=== PATIENT | female | born 1980 | race Caucasian/White ===

== ENCOUNTER 2017-01-25 12:24 | Observation (INO) | payer BC, MEDICAID ==
[2017-01-25] VITALS (25 sets, daily range): BP systolic 102–128; BP diastolic 57–84; PULSE 72–112; RESP 13–20; Ht 154.9 cm; Wt 72.0 kg
[~2017-01-25] VITALS: Ht 154.9 cm; Wt 72.0 kg
[~2017-01-25 12:24] MED LIST: CEFAZOLIN 2 GM/50 ML (PMX) 50 ML IVPB SCH; SOD CHLORIDE 0.9% 1,000 ML IV SCH
[2017-01-25] MEDS ORDERED: BUPIVACAINE 0.25% (MPF) 30 ML INJ ONE (13:40)
[2017-01-25] MEDS ORDERED: SUCCINYLCHOLINE CHLORIDE 100 MG/5 ML SYG IV ONE (13:55)
[2017-01-25] MEDS ORDERED: GLYCOPYRROLATE 0.4 MG INJ ONE ×2 (13:55→14:26)
[2017-01-25] MEDS ORDERED: PROPOFOL 20 ML ONE (13:55)
[2017-01-25] MEDS ORDERED: ROCURONIUM 50 MG INJ ONE (13:55)
[2017-01-25] MEDS ORDERED: LIDOCAINE 2% (SDV) 5 ML INJ ONE (13:55)
[2017-01-25] MEDS ORDERED: MEPERIDINE 100 MG INJ ONE (13:56)
[2017-01-25] MEDS ORDERED: NEOSTIGMINE 3 MG/3 ML SYRINGE ONE ×2 (13:56→14:25)
[2017-01-25] MEDS ORDERED: ONDANSETRON 4 MG INJ ONE (14:25)
[2017-01-25] MEDS ORDERED: CEFAZOLIN 1 GM INJ ONE (14:25)
[2017-01-25] MEDS ORDERED: METOCLOPRAMIDE 10 MG INJ ONE (14:25)
[2017-01-25] MEDS ORDERED: ONDANSETRON 4 MG INJ IV PRN ×2 (15:00→16:30)
[2017-01-25] MEDS ORDERED: MEPERIDINE 25 MG INJ IV PRN (15:00)
[2017-01-25] MEDS ORDERED: morphine (1 MG/ML) 10ML SYRINGE IV PRN ×2 (15:00)
[2017-01-25] MEDS ORDERED: EPHEDrine SULFATE 50 MG/5 ML SYG IV PRN (15:00)
[2017-01-25] MEDS ORDERED: DIPHENHYDRAMINE 50 MG INJ IV PRN (15:00)
[2017-01-25] MEDS ORDERED: hydrALAzine 20 MG INJ IV PRN (15:00)
[2017-01-25] MEDS ORDERED: FENTAnyl 50 MCG/ML VIAL IV PRN (15:00)
[2017-01-25] MEDS ORDERED: METOCLOPRAMIDE 10 MG INJ IV PRN (15:00)
[2017-01-25] MEDS ORDERED: LABETALOL HCL 20MG INJ IV PRN (15:00)
[2017-01-25] MEDS ORDERED: HYDROmorphONE (0.2 MG/ML) 10ML SYG IV PRN (15:00)
[2017-01-25] MEDS ORDERED: MIDAZOLAM 1 MG/ML 2 ML INJ IV PRN (15:00)
[2017-01-25] MEDS: LACTATED RINGER'S 1,000 ML IV SCH (15:31)
[2017-01-25] MEDS ORDERED: HYDROCODONE/APAP (5/325) TAB PO PRN (16:00)
[2017-01-25] MEDS ORDERED: CEFAZOLIN 2 GM/50 ML (PMX) 50 ML IVPB SCH (16:00)
[2017-01-25] MEDS: FENTAnyl 50 MCG/ML VIAL IV PRN ×2 (16:16→16:35)
[2017-01-25] MEDS: HYDROmorphONE (0.2 MG/ML) 10ML SYG IV PRN ×2 (16:16→16:34)
[2017-01-25 16:25] LABS: ADD SCAN DIFF NO
[2017-01-25 16:28] LABS: BASOPHILS % 0.2 % (0.0-2.0); EOSINOPHILS # 0.1 10^3/ul (0.0-0.5); EOSINOPHILS % 0.5 % (0.0-7.0); HEMATOCRIT 39.2 % (37.0-47.0); HEMOGLOBIN 13.6 g/dl (12.0-16.0); LYMPHOCYTES # 3.4 10^3/ul (0.8-2.9); MEAN CORPUSCULAR HEMOGLOBIN 29.8 pg (29.0-33.0); MEAN CORPUSCULAR HGB CONC 34.7 g/dl (32.0-37.0); MEAN PLATELET VOLUME 10.6 fl (7.4-10.4); MONOCYTE # 0.5 10^3/ul (0.3-0.9); MONOCYTES % 3.7 % (0.0-11.0); NEUTROPHIL # 9.1 10^3/ul (1.6-7.5); NEUTROPHILS % 69.1 % (39.0-77.0); PLATELET COUNT 301 10^3/UL (140-415); RED BLOOD COUNT 4.56 10^6/ul (4.20-5.40); RED CELL DISTRIBUTION WIDTH 12.7 % (11.5-14.5); WHITE BLOOD COUNT 13.2 10^3/ul (4.8-10.8)
[2017-01-25 16:44] LABS: ALBUMIN 3.9 g/dl (3.3-4.9)
[2017-01-25 16:47] LABS: ALBUMIN/GLOBULIN RATIO 1.21; BILIRUBIN,INDIRECT 0.2 mg/dl (0-1.1); BILIRUBIN,TOTAL 0.2 mg/dl (0.2-1.3); TOTAL PROTEIN 7.1 g/dl (6.1-8.1)
[2017-01-25 16:54] LABS: CREATININE 0.72 mg/dl (0.44-1.00); POTASSIUM 3.5 mmol/L (3.5-5.1)
[2017-01-25] MEDS: morphine 2 MG INJ IV PRN (18:08)
--- NOTE | 2017-01-25 19:14 | HP ---
DATE OF ADMISSION: 01/25/2017 HISTORY OF PRESENT ILLNESS: The patient is a 36-year-old female who denies any past medical history . The patient presented with a thyroid goiter with subsequent pressure and breathing problems. The patient was evaluated by Dr. Davis in general surgery consultation, was brought to the hospital, and underwent a total thyroidectomy by Dr. Davis. Postoperatively, the patient experienced significant pa in, and patient was admitted for further evaluation and management to medical/surgical floor. PAST MEDICAL HISTORY: Positive for thyroid goiter. PAST SURGICAL HISTORY: The patient denies having any surgeries in the past. FAMILY HISTORY: Noncontributory. SOCIAL HISTORY: The patient lives at home with her family. The patient denies any tobacco use, den ies any alcohol use, denies any illicit drug use. ALLERGIES: NO KNOWN ALLERGIES. HOME MEDICATIONS: None. REVIEW OF SYSTEMS: A 12-point review of systems is negative unless what mentioned in the HPI. PHYSICAL ASSESSMENT: GENERAL: Well-developed, obese female. Currently is awake, alert. VITAL SIGNS: Temperature 98.5, pulse is 72, blood pressure is 128/84, respiratory rate 20, oxygen s aturation 100% on room air. HEENT: Head is atraumatic, normocephalic. Pupils equal, round, reactive to light and accommodation . Oral mucosa is pink and moist. NECK: Supple. The patient has a surgical incision with a dry, clean, and intact dressing. CHEST: Lungs clear bilaterally. There are no rhonchi, wheezes, or rales noted. CARDIOVASCULAR: Normal S1, S2. No murmurs, gallops, clicks, rubs noted. ABDOMEN: Round, soft, nondistended, nontender. Bowel sounds present. There is no guarding or rebo und tenderness. EXTREMITIES: There is no edema, clubbing, cyanosis. Pulses equal bilaterally 2+. SKIN: There is no rash, petechiae noted. NEUROLOGIC: The patient is awake, alert, and oriented x3. No focal deficits noted. Motor strength 5/5 in all extremities. LABORATORY DATA: On admission, CBC: White blood cells 11.8, hemoglobin is 13.7, hematocrit 40.9, p latelets 300. BMP: Sodium is 139, potassium 3.8, chloride 105, carbon dioxide 23, calcium 9.3, glu cose 104, BUN is 10, creatinine 0.75. PT is 27, INR is 1, PT is 10.2. ASSESSMENT: 1. Thyroid goiter status post total thyroidectomy. 2. Obesity. PLAN: Continue on postoperative antibiotics. Continue morphine and [place] p.r.n. for pain. Zofran p.r.n. for nausea. Will start patient on clear liquid diet, advance as patient tolerates. Continue to monitor calcium and electrolytes. Continue sequential compression device for deep venous thromb osis prophylaxis. Further recommendations based on clinical course. Plan of care discussed with Dr Umer Huerta. Dictated By: NAE GUSTAFSON [employer] for VERNA HUERTA MD SR/NTS Conf#: [id number] DID#: [id number]
[2017-01-25] MEDS: CEFAZOLIN 2 GM/50 ML (PMX) 50 ML IVPB SCH (21:56)
[2017-01-26 00:15] VITALS: BP 108/61; PULSE 95; RESP 16
[2017-01-26] MEDS: LACTATED RINGER'S 1,000 ML IV SCH ×2 (02:33→11:02)
[2017-01-26] MEDS: morphine 2 MG INJ IV PRN ×2 (03:35→08:04)
[2017-01-26 03:45] VITALS: BP 103/59; PULSE 111; RESP 16
[2017-01-26 05:34] LABS: ADD SCAN DIFF NO
[2017-01-26 05:48] LABS: BASOPHIL # 0.1 10^3/ul (0.0-0.1); BASOPHILS % 0.3 % (0.0-2.0); EOSINOPHILS % 0.1 % (0.0-7.0); HEMATOCRIT 37.8 % (37.0-47.0); HEMOGLOBIN 12.9 g/dl (12.0-16.0); LYMPHOCYTES # 2.7 10^3/ul (0.8-2.9); LYMPHOCYTES % 17.4 % (15.0-51.0); MEAN CORPUSCULAR HEMOGLOBIN 29.4 pg (29.0-33.0); MEAN CORPUSCULAR HGB CONC 34.1 g/dl (32.0-37.0); MEAN CORPUSCULAR VOLUME 86.1 fl (82.0-101.0); MONOCYTE # 0.8 10^3/ul (0.3-0.9); MONOCYTES % 5.3 % (0.0-11.0); NEUTROPHILS % 76.6 % (39.0-77.0); PLATELET COUNT 295 10^3/UL (140-415); RED BLOOD COUNT 4.39 10^6/ul (4.20-5.40); RED CELL DISTRIBUTION WIDTH 12.8 % (11.5-14.5); WHITE BLOOD COUNT 15.7 10^3/ul (4.8-10.8)
[2017-01-26] MEDS: CEFAZOLIN 2 GM/50 ML (PMX) 50 ML IVPB SCH ×2 (06:03→13:59)
[2017-01-26 06:27] LABS: ALBUMIN 3.7 g/dl (3.3-4.9); POTASSIUM 3.8 mmol/L (3.5-5.1)
[2017-01-26 06:29] LABS: BILIRUBIN,INDIRECT 0.4 mg/dl (0-1.1); BILIRUBIN,TOTAL 0.4 mg/dl (0.2-1.3); CREATININE 0.71 mg/dl (0.44-1.00)
[2017-01-26 06:30] LABS: ALBUMIN/GLOBULIN RATIO 1.23; CALCIUM 7.9 mg/dl (8.4-10.2); TOTAL PROTEIN 6.7 g/dl (6.1-8.1)
--- NOTE | 2017-01-26 06:38 | OPR ---
DATE OF OPERATION: 01/25/2017 INDICATION: This is a 36-year-old female with multinodular goiter with symptoms of pressure and dif ficulties breathing and swallowing. She requests surgical excision. Risks, alternatives, benefits, and personnel were discussed with the patient. Patient expressed understanding and consents to the operation. PREOPERATIVE DIAGNOSIS: Multinodular goiter. POSTOPERATIVE DIAGNOSIS: Multinodular goiter. OPERATION: Right thyroid lobectomy and isthmusectomy. SURGEON: Sarahi Davis MD SPECIMEN: Right thyroid and isthmus. COMPLICATIONS: None. ANESTHESIA: General. PROCEDURE: The patient was taken to the OR and prepped and draped in usual sterile fashion. Surgic al timeout was performed. IV antibiotics were given. Collar incision is made with a 15 blade. Dis section cautery was carried down through the platysma. Superior and inferior skin flaps were create d. Strap muscles were divided in the midline. Attention was then paid to the right thyroid. There appeared to be a lot of inflammation and adhesions to the anterior thyroid. This was dissected out very carefully. The superior and right inferior pole was mobilized. The isthmus was mobilized thr ough posterior dissection. Palpation of the left side was made. There were no apparent nodules. D ecision was made after reviewing the ultrasound imaging to proceed with solely a right-sided thyroid lobectomy isthmusectomy. The thyroid lobe was medialized and the middle thyroidal vein was ligated . There is a significant amount of inflammation and adhesions to the thyroid. The thyroid capsule was slowly dissected off from the adhesions and considerable time was used to do the dissection. Th e right thyroid, superior and inferior pole was mobilized, the isthmus was mobilized and the isthmus was divided from the left thyroid pole with the handheld LigaSure. The surgical markings were sing le short thread right superior, single long thread inferior and double long is isthmus. The specime n was sent. The surgical site was hemostatic. Irrigation of the surgical site was performed with 4 0 cm of Valsalva maneuver. There was no appearance of any bleeding. Strap muscles were reapproxima santana with interrupted 3-0 Vicryl. Platysma muscle was reapproximated with interrupted 3-0 Vicryl. S kin was closed using running 4-0 Monocryl. Local anesthesia was injected. Dry dressings were appli ed. Dictated By: SARAHI SIMPSON/ASHLEIGH Conf#: [id number] DID#: [id number]
[2017-01-26 08:42] VITALS: BP 94/61; RESP 16
--- NOTE | 2017-01-26 14:25 | PN ---
Date/Time of Note Date/Time of Note DATE: 01/26/17 TIME: 14:24 Assessment/Plan VTE Prophylaxis VTE Prophylaxis Intervention: SCD's Lines/Catheters IV [facility]from [facility] Peripheral IV Urinary Cath still in place: No Assessment/Plan Chief Complaint/Hosp Course s/p right thyroid lobectomy and isthmusthectomy Problems: Assessment/Plan doing well voice normal dc home f/u 2 weeks Subjective 24 Hr Interval Summary Free Text/Dictation doing well, no issues, voice normal breathing normal Exam/Review of Systems Vital Signs Vitals Vital Signs Date Time Temp Pulse Resp B/P Pulse Ox O2 Delivery O2 Flow Rate FiO2 01/26/17 08:42 98.5 98 16 94/61 93 01/26/17 03:45 Room Air 01/26/17 00:15 2.0 Intake and Output 01/25/17 01/25/17 01/26/17 15:00 23:00 07:00 Intake Total 850 ml 800 ml Output Total 10 ml 800 ml Balance 840 ml 0 ml Exam c/d/i Results Result Diagram: 01/26/17 0430 01/26/17 0430 Results 24 hrs Laboratory Tests Test 01/25/17 16:20 01/26/17 04:30 White Blood Count 13.2 H 15.7 H Red Blood Count 4.56 4.39 Hemoglobin 13.6 12.9 Hematocrit 39.2 37.8 Mean Corpuscular Volume 86.0 86.1 Mean Corpuscular Hemoglobin 29.8 29.4 Mean Corpuscular Hemoglobin Concent 34.7 34.1 Red Cell Distribution Width 12.7 12.8 Platelet Count 301 295 Mean Platelet Volume 10.6 H 11.0 H Neutrophils % 69.1 76.6 Lymphocytes % 26.0 17.4 Monocytes % 3.7 5.3 Eosinophils % 0.5 0.1 Basophils % 0.2 0.3 Nucleated Red Blood Cells % 0.0 0.0 Neutrophils # 9.1 H 12.0 H Lymphocytes # 3.4 H 2.7 Monocytes # 0.5 0.8 Eosinophils # 0.1 0.0 Basophils # 0.0 0.1 Nucleated Red Blood Cells # 0.0 0.0 Sodium Level 138 137 Potassium Level 3.5 3.8 Chloride Level 105 103 Carbon Dioxide Level 24 26 Anion Gap 13 12 Blood Urea Nitrogen 8 8 Creatinine 0.72 0.71 Glucose Level 111 99 Calcium Level 8.0 L 7.9 L Total Bilirubin 0.2 0.4 Direct Bilirubin 0.00 0.00 Indirect Bilirubin 0.2 0.4 Aspartate Amino Transf (AST/SGOT) 33 31 Alanine Aminotransferase (ALT/SGPT) 56 48 Alkaline Phosphatase 119 104 Total Protein 7.1 6.7 Albumin 3.9 3.7 Globulin 3.20 3.00 Albumin/Globulin Ratio 1.21 1.23 Medications Medications Current Medications Morphine Sulfate (morphine) 2 mg Q2H PRN IV PAIN LEVEL 6-10 Last administered on 01/26/17 08:04; Admin Dose 2 MG; Start 01/25/17 at 16:00 Acetaminophen/ Hydrocodone Bitart 1 tab 1 tab Q6H PRN PO PAIN LEVEL 6-10; Start 01/25/17 at 16:00 Lactated Ringer's (Lr) 1,000 ml @ 100 mls/hr Q10H IV Last administered on 01/26 02:33; Admin Dose 100 MLS/HR; Start 01/25/17 at 15:31 Ondansetron HCl 4 mg 4 mg Q4H PRN IV NAUSEA AND/OR VOMITING; Start 01/25/17 at 16:30 Cefazolin Sodium/ Dextrose (Ancef 2 Gm/50 ml (Pmx)) 50 ml @ 100 mls/hr Q8H IVPB Last administered on 01/26/17 13:59; Admin Dose 100 MLS/HR; Start at 22:00; Stop 01/26/17 at 21:59 Jaci BOBBY Jan 26, 2017 14:25
[2017-01-26] MEDS ORDERED: HYDR-3498 PO (16:06)
--- NOTE | 2017-01-31 20:34 | DS ---
DATE OF ADMISSION: 01/25/2017 DATE OF DISCHARGE: 01/26/2017 FINAL DIAGNOSIS: Multinodular goiter status post right thyroid lobectomy and isthmusectomy. BRIEF HISTORY: The patient is a 36-year-old female who denies any prior medical history. The patie nt presented with thyroid goiter with pressure and breathing problems. The patient was evaluated by Dr. Davis in surgical consultation. The patient was brought to the hospital and underwent right thyr oid lobectomy and isthmusectomy by Dr. Davis. In the postoperative period, the patient experienced si gnificant pain and was admitted for further evaluation and management. HOSPITAL COURSE: The patient was given IV morphine for pain and Zofran for nausea. The patient rec eived postoperative IV antibiotics, cefazolin. The patient was also continued on IV fluids. Electr olytes were closely monitored. The patient's condition improved. The patient was able to swallow w ith no problems, pain was well controlled, and patient was discharged home. CONDITION ON DISCHARGE: Hemodynamically stable. ACTIVITY: As patient tolerates. DIET: Regular diet. DISCHARGE MEDICATIONS: The patient was given prescription for [place] p.r.n. for pain. FOLLOWUP: The patient was instructed to follow up with Dr. Davis in postoperative appointment in 1 to 2 weeks. Dictated By: NAE GUSTAFSON [employer]ER for VERNA CAMPOS MD, SR/NTS Conf#: [id number] DID#: [id number]
== END 2017-01-26 17:30 | disposition home or self-care (01) ==
LOC: INTOOBSV 12:38 → REC 12:38 → EDSTATUS 13:53 → MS1 17:05
PROVIDERS: ADMIT Internal Medicine; ATTEND Surgery
DX: E04.2 Nontoxic multinodular goiter (principal); E66.9 Obesity, unspecified; Z68.30 Body mass index [BMI] 30.0-30.9, adult
CPT/HCPCS: 60220; 80053; 84703; 85025; 88307; J0330; J0690; J1170; J2175; J2270; J2405; J2765; J3010; J7120; Z7500; Z7512; Z7610; 99217; G0378; J2710

== ENCOUNTER 2017-01-29 15:45 | Outpatient (CLI) | payer BC ==
[~2017-01-29] VITALS: Ht 154.9 cm; Wt 71.4 kg
[~2017-01-29 15:45] MED LIST changes: -CEFAZOLIN 2 GM/50 ML (PMX) 50 ML IVPB SCH; +HYDR-3498 PO; -SOD CHLORIDE 0.9% 1,000 ML IV SCH
[2017-01-29 16:01] VITALS: BP 113/76; PULSE 86; RESP 16; Ht 154.9 cm; Wt 71.4 kg
--- NOTE | 2017-01-29 16:24 | PN ---
Date/Time of Note Date/Time of Note DATE: 01/29/17 TIME: 16:17 Outpatient Progress Note Chief Complaint Thyroid goiter/status post thyroidectomy/obesity HPI Thyroid goiter/chronic in nature, patient has enlargement of thyroid gland, no pain, no dysphagia, no weight loss, patient had recently thyroidectomy, no fever or chills, no discharge, no pain, no difficulty in swallowing food, no redness, no pain, no difficulty moving next, Obesity/patient slightly obese, no history of any diabetes, or any other issues, Review of Systems Const: No Fever, no chills, no Wt. loss, no Fatigue, normal appetite, no diaphoresis. Eyes: No pain, no discharge, no redness, no visual change, no foreign body. ENT: Minimal neck pain, no pain, no bleeding, no congestion, no sore throat, no dysphagia, no discharge or rhinitis. Lymph: No adenopathy, no tender nodes, no lymphedema. Resp: No SOB, no cough, no sputum, no wheezing, no chest pain. CV: No chest pain, no palpitaions, no DUNHAM, no PND, no edema. GI: Normal appetite, no pain, no nausea, no vomiting, no diarrhea, no blood, no constipation. : No frequency, no urgency, no dysuria, no hematuria, no flank pain, no discharge, no bleeding. Musc: No bone/joint pain, no back pain, no neck pain, no knee pain, no restricted ROM. Skin: No rash, no skin lesions, no erythema, no laceration, no bruising, no pruritus. Neuro: No ROLLE, no dizziness, no syncope, no seizure, no focal-weakness. Endo: No polyuria, no polydypsia, no dry-skin, no temp-intolerance. Psych: No hallucinations, no depression, no anxiety, no suicidal ideation. Ext: No edema, no pain, no ulcer, no weakness. Physical Exam Vital Signs Date Time Temp Pulse Resp B/P Pulse Ox O2 Delivery O2 Flow Rate FiO2 01/29/17 16:01 98.7 86 16 113/76 98 Room Air General Appearance: A [A 36] year-old [female [who appears well-developed, well -nourished, in no acute distress.] HEENT: [Head normocephalic, atraumatic. Pupils equal, round, reactive to light and accommodate. Sclerae are no jaundice. Nasal turbinates pink without erythema or nasal discharge. Mucous membranes pink and moist without lesions. Oropharynx clear without any exudate or discharge.] NECK: [Supple. Trachea midline, post thyroidectomy,, No cervical lymphadenopathy , No mass, No carotid bruits, No JVD, Carotid pulses 2+ bilaterally.] PULMONARY: [Clear to auscultaion bilaterally, No retractions, Chest expansion symmetric bilaterally, no rales, no ronchi, no dulness on percussion.] CARDIAC: [Normal SI and S2, Regular rate and rythm, no murmur, gallop, or rub.] GASTROINTESTINAL: [Abdomen is soft, non-tender, Non Rigid, No distention, Positive bowel sounds x4 quadrants, Liver normal.] SKIN: [Warm, dry, no rash, no bruise, no echmosis.] EXTREMITIES: [Bilateral lower extremities normal, no edema, no phlabitus, pulse palpable, no contracture.] MUSCULOSKELETAL: [Spine Normal, Non-tender, Normal range of motion, No swelling , no deformity, no clubbing, or cyanosis, the patient has no edema to bilateral lower extremities, dorsalis pedis pulses palpable bilaterally.] NEUROLOGIC: [The patient is awake, alert, oriented, responding to yes/no questions appropriately, moving all extremities, cranial nerve intact, normal strenght, normal power, normal coordination, normal gait.] Allergies Coded Allergies: No Known Allergies (Unverified Allergy, Unknown, 01/25/17) PMH Thyroid goiter Social Hx No smoking no drinking, Family Hx Noncontributory Assessment/Plan Impression Thyroid goiter/status post thyroidectomy/obesity Plan Continue present treatment, patient is feeling fine, Patient encouraged to follow with the primary care physician, and surgery, T CBC CMP and TSH, Medications Home Meds Active Scripts Hydrocodone Bit-Acetaminophen (Hydrocodone Bit-APAP) 5-325MG Tablet, 1 TAB PO Q6H Y for PAIN LEVEL 6-10, #20 TAB Prov:NAE GUSTAFSON 01/26/17 KULWANT KAPOOR MD Jan 29, 2017 16:24
== END 2017-01-29 16:37 | disposition home or self-care (01) ==
LOC: DCC 15:45
PROVIDERS: ATTEND Internal Medicine
DX: E04.9 Nontoxic goiter, unspecified (principal); E66.9 Obesity, unspecified

== ENCOUNTER 2017-02-12 14:07 | Outpatient (CLI) | payer BC ==
[~2017-02-12] VITALS: Ht 154.9 cm; Wt 73.2 kg
[2017-02-12 14:12] VITALS: BP 123/81; PULSE 80; RESP 16; Ht 154.9 cm; Wt 73.2 kg
--- NOTE | 2017-02-12 14:54 | PN ---
Date/Time of Note Date/Time of Note DATE: 02/12/17 TIME: 14:49 Outpatient Progress Note Chief Complaint Thyroid cancer/obesity HPI Thyroid cancer/patient had recent thyroidectomy, biopsy report shows patient has papillary thyroid carcinoma, classical Patient has minimal discomfort in her neck, patient is going for surgery next week, Obesity/patient is slightly obese, no other medical issue related to obesity, Review of Systems Const: No Fever, no chills, no Wt. loss, no Fatigue, normal appetite, no diaphoresis. Eyes: No pain, no discharge, no redness, no visual change, no foreign body. ENT: No pain, no bleeding, no congestion, no sore throat, no dysphagia, no discharge or rhinitis. Minimal neck discomfort at the scar of thyroidectomy, Lymph: No adenopathy, no tender nodes, no lymphedema. Resp: No SOB, no cough, no sputum, no wheezing, no chest pain. CV: No chest pain, no palpitaions, no DUNHAM, no PND, no edema. GI: Normal appetite, no pain, no nausea, no vomiting, no diarrhea, no blood, no constipation. : No frequency, no urgency, no dysuria, no hematuria, no flank pain, no discharge, no bleeding. Musc: No bone/joint pain, no back pain, no neck pain, no knee pain, no restricted ROM. Skin: No rash, no skin lesions, no erythema, no laceration, no bruising, no pruritus. Neuro: No ROLLE, no dizziness, no syncope, no seizure, no focal-weakness. Endo: No polyuria, no polydypsia, no dry-skin, no temp-intolerance. Psych: No hallucinations, no depression, no anxiety, no suicidal ideation. Ext: No edema, no pain, no ulcer, no weakness. Physical Exam Vital Signs Date Time Temp Pulse Resp B/P Pulse Ox O2 Delivery O2 Flow Rate FiO2 02/12/17 14:12 98.1 80 16 123/81 98 Room Air General Appearance: A 37 year-old female who appears well-developed, well- nourished, in no acute distress. HEENT: Head normocephalic, atraumatic. Pupils equal, round, reactive to light and accommodate. Sclerae are no jaundice. Nasal turbinates pink without erythema or nasal discharge. Mucous membranes pink and moist without lesions. Oropharynx clear without any exudate or discharge. NECK: Supple minimal discomfort at surgical scar,. Trachea midline, No thyromegaly, No cervical lymphadenopathy, No mass, No carotid bruits, No JVD, Carotid pulses 2+ bilaterally. PULMONARY: Clear to auscultaion bilaterally, No retractions, Chest expansion symmetric bilaterally, no rales, no ronchi, no dulness on percussion. CARDIAC: Normal SI and S2, Regular rate and rythm, no murmur, gallop, or rub. GASTROINTESTINAL: Abdomen is soft, non-tender, Non Rigid, No distention, Positive bowel sounds x4 quadrants, Liver normal. SKIN: Warm, dry, no rash, no bruise, no echmosis. EXTREMITIES: Bilateral lower extremities normal, no edema, no phlabitus, pulse palpable, no contracture. MUSCULOSKELETAL: Spine Normal, Non-tender, Normal range of motion, No swelling, no deformity, no clubbing, or cyanosis, the patient has no edema to bilateral lower extremities, dorsalis pedis pulses palpable bilaterally. NEUROLOGIC: The patient is awake, alert, oriented, responding to yes/no questions appropriately, moving all extremities, cranial nerve intact, normal strenght, normal power, normal coordination, normal gait. Allergies Coded Allergies: No Known Allergies (Unverified Allergy, Unknown, 01/25/17) PMH No change Social Hx No change Family Hx No change Assessment/Plan Impression Papillary thyroid carcinoma/obesity/status post thyroidectomy Plan Patient education done about her condition and prognosis, Patient to follow with the surgery next week, preop will be done on admission, Supportive care done, Medications Home Meds Discontinued Scripts Hydrocodone Bit-Acetaminophen (Hydrocodone Bit-APAP) 5-325MG Tablet, 1 TAB PO Q6H Y for PAIN LEVEL 6-10, #20 TAB Prov:NAE GUSTAFSON 01/26/17 KULWANT KAPOOR MD Feb 12, 2017 14:54
== END 2017-02-12 15:15 | disposition home or self-care (01) ==
LOC: DCC 14:07
PROVIDERS: ATTEND Internal Medicine
DX: C73 Malignant neoplasm of thyroid gland (principal); E66.9 Obesity, unspecified

== ENCOUNTER 2017-03-18 11:24 | Observation (INO) | payer BC ==
[2017-03-18] VITALS (24 sets, daily range): BP systolic 98–163; BP diastolic 50–86; PULSE 91–128; RESP 11–20; Ht 154.9 cm; Wt 73.6 kg
[~2017-03-18] VITALS: Ht 154.9 cm; Wt 73.6 kg
[2017-03-18] MEDS ORDERED: CEFAZOLIN 2 GM/50 ML (PMX) 50 ML IVPB ONE (12:30)
[2017-03-18] MEDS ORDERED: SOD CHLORIDE 0.9% 1,000 ML IV SCH (12:30)
[2017-03-18] MEDS ORDERED: MIDAZOLAM 1 MG/ML 2 ML INJ ONE (13:33)
[2017-03-18] MEDS ORDERED: LIDOCAINE 2% (SDV) 5 ML INJ ONE (13:33)
[2017-03-18] MEDS ORDERED: PROPOFOL 20 ML ONE (13:33)
[2017-03-18] MEDS ORDERED: CEFAZOLIN 1 GM INJ ONE (13:34)
[2017-03-18] MEDS ORDERED: FENTAnyl 50 MCG/ML VIAL ONE (13:34)
[2017-03-18] MEDS ORDERED: FENTAnyl 50 MCG/ML VIAL IV PRN (14:00)
[2017-03-18] MEDS ORDERED: DIPHENHYDRAMINE 50 MG INJ IV PRN (14:00)
[2017-03-18] MEDS ORDERED: ONDANSETRON 4 MG INJ IV PRN ×2 (14:00→20:00)
[2017-03-18] MEDS ORDERED: MEPERIDINE 25 MG INJ IV PRN (14:00)
[2017-03-18] MEDS ORDERED: PROCHLORPERAZINE 10 MG INJ IV PRN (14:00)
[2017-03-18] MEDS ORDERED: HYDROmorphONE (0.2 MG/ML) 10ML SYG IV PRN (14:00)
[2017-03-18] MEDS ORDERED: DEXAMETHASONE 4 MG/ML 1 ML INJ ONE (14:49)
[2017-03-18] MEDS ORDERED: ONDANSETRON 4 MG INJ ONE (14:49)
[2017-03-18] MEDS ORDERED: METOCLOPRAMIDE 10 MG INJ ONE (14:49)
[2017-03-18] MEDS ORDERED: BUPIVACAINE 0.25% (MPF) 30 ML INJ ONE (14:55)
[2017-03-18] MEDS ORDERED: HYDROmorphONE 2 MG/ML SYG ONE (15:02)
[2017-03-18] MEDS ORDERED: ACETAMINOPHEN 1000MG/100ML IV 100 ML ONE (15:10)
[2017-03-18] MEDS ORDERED: LACTATED RINGER'S 1,000 ML IV SCH (15:49)
--- NOTE | 2017-03-18 15:49 | OPR ---
Date/Time of Note Date/Time of Note DATE: 03/18/17 TIME: 15:49 Operative Report Procedure Date: March 18, 2017 Preoperative Diagnosis papillary thyroid cancer Postoperative Diagnosis same Operation Performed completion total thyroidectomy Surgeon: Jaci BOBBY Specimens left thyroid Jaci BOBBY March 18, 2017 15:49
[2017-03-18] MEDS: CEFAZOLIN 2 GM/50 ML (PMX) 50 ML IVPB SCH (16:00)
--- NOTE | 2017-03-18 16:06 | OPR ---
DATE OF OPERATION: 03/18/2017 INDICATION: This is a 37-year-old female found on the right thyroid lobectomy to have papillary thy roid cancer. She is here for completion thyroidectomy. Risks, alternatives, benefits and personnel patient. Patient expresses understanding and consents to the operation. PREOPERATIVE DIAGNOSIS: Papillary thyroid cancer. POSTOPERATIVE DIAGNOSIS: Papillary thyroid cancer. OPERATION PERFORMED: 1. Completion total thyroidectomy. 2. Localized adjacent tissue transfer with the use of skin flaps with a 16 square cm defect. SURGEON: Sarahi Davis MD SPECIMEN: Left completion thyroid with surgical markings of short left superior pole, single long l eft inferior pole. ANESTHESIA: General. PROCEDURE IN DETAIL: The patient was taken to the OR and prepped and draped in usual sterile fashio n. Surgical timeout was performed. IV antibiotics were given. An elliptical incision was made ove r the old cicatrix and this was removed. Dissection cautery was carried down to the platysma. The strap muscles were split in the midline. Attention was paid to the left thyroid. Superior and infe rior left thyroid poles were mobilized. The middle thyroidal vein was ligated. Careful attention w as paid to prevent injury to the recurrent laryngeal nerve. The thyroid was medialized and resected off the trachea. There was good hemostasis. The surgical site was irrigated with irrigation and 4 0 cm of Valsalva was performed. There no further evidence of bleeding. Thyroid was marked which si ngle short left superior pole, single long left inferior pole. The strap muscles were reapproximate d in the midline with interrupted 3-0 Vicryls. The platysmal flaps were reapproximated with interru pted 3-0 Vicryl. Skin was closed using interrupted 3-0 Vicryl and running 4-0 Monocryl. Local anes thesia was injected. Dry dressings were applied. Dictated By: SARAHI SIMPSON/ASHLEIGH Conf#: [id number] DID#: [id number]
[2017-03-18 16:19] LABS: ADD SCAN DIFF NO
[2017-03-18 16:20] LABS: BASOPHIL # 0.1 10^3/ul (0.0-0.1); BASOPHILS % 0.4 % (0.0-2.0); EOSINOPHILS # 0.1 10^3/ul (0.0-0.5); EOSINOPHILS % 0.7 % (0.0-7.0); HEMATOCRIT 41.2 % (37.0-47.0); HEMOGLOBIN 13.8 g/dl (12.0-16.0); LYMPHOCYTES # 3.4 10^3/ul (0.8-2.9); LYMPHOCYTES % 22.7 % (15.0-51.0); MEAN CORPUSCULAR HEMOGLOBIN 29.4 pg (29.0-33.0); MEAN CORPUSCULAR HGB CONC 33.5 g/dl (32.0-37.0); MEAN CORPUSCULAR VOLUME 87.7 fl (82.0-101.0); MEAN PLATELET VOLUME 10.3 fl (7.4-10.4); MONOCYTE # 0.4 10^3/ul (0.3-0.9); MONOCYTES % 2.8 % (0.0-11.0); NEUTROPHIL # 10.8 10^3/ul (1.6-7.5); NEUTROPHILS % 72.9 % (39.0-77.0); PLATELET COUNT 326 10^3/UL (140-415); RED CELL DISTRIBUTION WIDTH 12.9 % (11.5-14.5); WHITE BLOOD COUNT 14.8 10^3/ul (4.8-10.8)
[2017-03-18] MEDS: HYDROmorphONE (0.2 MG/ML) 10ML SYG IV PRN ×5 (16:22→17:11)
[2017-03-18 16:46] LABS: ALBUMIN 4.1 g/dl (3.3-4.9); ALBUMIN/GLOBULIN RATIO 1.17; BILIRUBIN,INDIRECT 0.1 mg/dl (0-1.1); BILIRUBIN,TOTAL 0.1 mg/dl (0.2-1.3); TOTAL PROTEIN 7.6 g/dl (6.1-8.1)
[2017-03-18 16:48] LABS: CALCIUM 7.9 mg/dl (8.4-10.2); CREATININE 0.71 mg/dl (0.44-1.00); POTASSIUM 4.4 mmol/L (3.5-5.1)
[2017-03-18] MEDS: morphine 2 MG INJ IV PRN ×2 (18:14→21:36)
[2017-03-18] MEDS: DEXTROSE 5%-0.45% NACL 1,000 ML IV SCH (18:50)
--- NOTE | 2017-03-18 19:30 | HP ---
Date/Time of Note Date/Time of Note DATE: 03/18/17 TIME: 19:24 Assessment/Plan VTE Prophylaxis VTE Prophylaxis Intervention: SCD's Lines/Catheters IV Catheter Type (from [facility]): Peripheral IV Assessment/Plan Assessment/Plan - Completion total thyroidectomy. - per surgery - pain meds - IVF - scd - IS - IVF- D5 11/02 NS - 60 cc/hr CC/HR - am lab -- Papillary thyroid cancer. - Leucocytosis-on post op Ancef - am labs DW dR Spence HPI/ROS Admit Date/Time Admit Date/Time March 18, 2017 at 15:51 Hx of Present Illness This is a 37-year-old female found on the right thyroid lobectomy. She had a thyroidectomy performed by Dr Davis today. Patient is admitted under Dr Spence on med surg floor. During assessment, patient is sitting up in bed, friend at bed side. Patient states she feels better, is able to eat her dinner. Denies any chest pain, shortness of breath, chills, headache, dizziness, focal weakness/numbness. ROS Eyes: no complaints ENT: pain (throat pain) Respiratory: no complaints Cardiovascular: no complaints Gastrointestinal: no complaints Genitourinary: no complaints Musculoskeletal: no complaints Skin: no complaints PMH/Family/Social Past Medical History papillary thyroid cancer. Medical History: other Past Surgical History Past Surgical Hx: no surgical history Family History Significant Family History: no pertinent family hx Social History Alcohol Use: none Smoking Status: Never smoker Drug Use: none Exam/Review of Systems Vital Signs Vitals Vital Signs Date Time Temp Pulse Resp B/P Pulse Ox O2 Delivery O2 Flow Rate FiO2 03/18/17 18:45 103 16 98/50 95 Nasal Cannula 3.0 03/18/17 17:45 98.3 Exam Constitutional: alert, oriented, well developed Psych: nl mood/affect Head: atraumatic Eyes: EOMI, nl sclera ENMT: nl external ears & nose, other (spTotal thyroidectomy- DDI, able to swallow, speak. ) Neck: non-tender Respiratory: clear to auscultation Cardiovascular: nl pulses Gastrointestinal: non-tender, soft Musculoskeletal: nl extremities to inspection Extremities: normal pulses Neurological: nl mental status Skin: other Lymph: nontender Labs Result Diagram: 03/18/17 1610 03/18/17 1610 Medications Medications Current Medications Cefazolin Sodium/ Dextrose (Ancef 2 Gm/50 ml (Pmx)) 50 ml @ 100 mls/hr Q8H IVPB ; Start 03/18/17 at 16:00; Stop 03/19/17 at 15:59 Morphine Sulfate (morphine) 2 mg Q2H PRN IV PAIN LEVEL 6-10 Last administered on 03/18/17 18:14; Admin Dose 2 MG; Start 03/18/17 at 16:00 Acetaminophen/ Hydrocodone Bitart 1 tab 1 tab Q6H PRN PO PAIN LEVEL 6-10; Start 03/18/17 at 16:00 Dextrose/Sodium Chloride (D5-1/2ns) 1,000 ml @ 60 mls/hr [id number] IV Last administered on 03/18/17 18:50; Admin Dose 60 MLS/HR; Start 03/18/17 at 19:00 FILI GR March 18, 2017 19:30
[2017-03-18] MEDS: HYDROCODONE/APAP (5/325) TAB PO PRN (21:36)
[2017-03-19] MEDS: CEFAZOLIN 2 GM/50 ML (PMX) 50 ML IVPB SCH ×2 (00:47→10:31)
[2017-03-19 00:48] VITALS: BP 100/57; PULSE 99; RESP 17
[2017-03-19] MEDS: morphine 2 MG INJ IV PRN (00:48)
[2017-03-19] MEDS: HYDROCODONE/APAP (5/325) TAB PO PRN (05:54)
[2017-03-19 06:03] LABS: ADD SCAN DIFF NO
[2017-03-19 06:07] LABS: BASOPHILS % 0.1 % (0.0-2.0); HEMATOCRIT 37.6 % (37.0-47.0); HEMOGLOBIN 12.6 g/dl (12.0-16.0); LYMPHOCYTES # 1.3 10^3/ul (0.8-2.9); LYMPHOCYTES % 8.5 % (15.0-51.0); MEAN CORPUSCULAR HEMOGLOBIN 29.4 pg (29.0-33.0); MEAN CORPUSCULAR HGB CONC 33.5 g/dl (32.0-37.0); MEAN CORPUSCULAR VOLUME 87.6 fl (82.0-101.0); MEAN PLATELET VOLUME 10.8 fl (7.4-10.4); MONOCYTE # 0.4 10^3/ul (0.3-0.9); NEUTROPHILS % 87.9 % (39.0-77.0); PLATELET COUNT 315 10^3/UL (140-415); RED BLOOD COUNT 4.29 10^6/ul (4.20-5.40); WHITE BLOOD COUNT 14.7 10^3/ul (4.8-10.8)
[2017-03-19 06:39] LABS: ALBUMIN 3.8 g/dl (3.3-4.9)
[2017-03-19 06:40] LABS: POTASSIUM 4.1 mmol/L (3.5-5.1)
[2017-03-19 06:42] LABS: ALBUMIN/GLOBULIN RATIO 1.08; BILIRUBIN,INDIRECT 0.2 mg/dl (0-1.1); BILIRUBIN,TOTAL 0.2 mg/dl (0.2-1.3); CREATININE 0.63 mg/dl (0.44-1.00); TOTAL PROTEIN 7.3 g/dl (6.1-8.1)
[2017-03-19 06:43] LABS: CALCIUM 8.1 mg/dl (8.4-10.2); POTASSIUM 4.3 mmol/L (3.5-5.1)
[2017-03-19 06:45] LABS: CREATININE 0.61 mg/dl (0.44-1.00)
[2017-03-19 06:46] LABS: CALCIUM 8.3 mg/dl (8.4-10.2)
[2017-03-19 07:45] VITALS: BP 98/55; RESP 18
--- NOTE | 2017-03-19 08:08 | PN ---
Date/Time of Note Date/Time of Note DATE: 03/19/17 TIME: 08:08 Assessment/Plan VTE Prophylaxis VTE Prophylaxis Intervention: SCD's Lines/Catheters IV Catheter Type (from Nrs): Peripheral IV Assessment/Plan Chief Complaint/Hosp Course s/p completion thyroidectomy dc home today and f/u in 2 weeks Problems: Subjective 24 Hr Interval Summary Free Text/Dictation doing well, tolerating diet, no voice change Exam/Review of Systems Vital Signs Vitals Vital Signs Date Time Temp Pulse Resp B/P Pulse Ox O2 Delivery O2 Flow Rate FiO2 03/19/17 07:45 98.5 82 18 98/55 93 03/19/17 00:48 Room Air 03/18/17 20:00 3.0 Intake and Output 03/18/17 03/18/17 03/19/17 15:00 23:00 07:00 Intake Total 700 ml 740 ml Output Total 20 ml 1100 ml Balance 680 ml -360 ml Exam c/d/i Results Result Diagram: 03/19/17 0522 03/19/17 0522 Results 24 hrs Laboratory Tests Test 03/18/17 16:10 03/19/17 05:22 White Blood Count 14.8 H 14.7 H Red Blood Count 4.70 4.29 Hemoglobin 13.8 12.6 Hematocrit 41.2 37.6 Mean Corpuscular Volume 87.7 87.6 Mean Corpuscular Hemoglobin 29.4 29.4 Mean Corpuscular Hemoglobin Concent 33.5 33.5 Red Cell Distribution Width 12.9 13.0 Platelet Count 326 315 Mean Platelet Volume 10.3 10.8 H Neutrophils % 72.9 87.9 H Lymphocytes % 22.7 8.5 L Monocytes % 2.8 3.0 Eosinophils % 0.7 0.0 Basophils % 0.4 0.1 Nucleated Red Blood Cells % 0.0 0.0 Neutrophils # 10.8 H 13.0 H Lymphocytes # 3.4 H 1.3 Monocytes # 0.4 0.4 Eosinophils # 0.1 0.0 Basophils # 0.1 0.0 Nucleated Red Blood Cells # 0.0 0.0 Sodium Level 138 138 Potassium Level 4.4 4.3 Chloride Level 109 101 Carbon Dioxide Level 21 22 Anion Gap 12 19 H Blood Urea Nitrogen 8 8 Creatinine 0.71 0.61 Glucose Level 99 146 Calcium Level 7.9 L 8.3 L Total Bilirubin 0.1 L 0.2 Direct Bilirubin 0.00 0.00 Indirect Bilirubin 0.1 0.2 Aspartate Amino Transf (AST/SGOT) 47 H 48 H Alanine Aminotransferase (ALT/SGPT) 79 H 66 Alkaline Phosphatase 124 H 92 Total Protein 7.6 7.3 Albumin 4.1 3.8 Globulin 3.50 H 3.50 H Albumin/Globulin Ratio 1.17 1.08 Medications Medications Current Medications Cefazolin Sodium/ Dextrose (Ancef 2 Gm/50 ml (Pmx)) 50 ml @ 100 mls/hr Q8H IVPB Last administered on 03/19/17 00:47; Admin Dose 100 MLS/HR; Start at 16:00; Stop 03/19/17 at 15:59 Morphine Sulfate (morphine) 2 mg Q2H PRN IV PAIN LEVEL 6-10 Last administered on 03/19/17 00:48; Admin Dose 2 MG; Start 03/18/17 at 16:00 Acetaminophen/ Hydrocodone Bitart 1 tab 1 tab Q6H PRN PO PAIN LEVEL 6-10 Last administered on 03/19/17 05:54; Admin Dose 1 TAB; Start 03/18/17 at 16:00 Dextrose/Sodium Chloride (D5-1/2ns) 1,000 ml @ 60 mls/hr [id number] IV Last administered on 03/18/17 18:50; Admin Dose 60 MLS/HR; Start 03/18/17 at 19:00 Ondansetron HCl (Zofran Inj) 4 mg Q6H PRN IV NAUSEA AND/OR VOMITING Last administered on 03/19/17 00:47; Admin Dose 4 MG; Start 03/18/17 at 20:00 Jaci BOBBY March 19, 2017 08:08
[2017-03-19] MEDS: DEXTROSE 5%-0.45% NACL 1,000 ML IV SCH ×2 (11:40→13:48)
--- NOTE | 2017-03-22 03:58 | DS ---
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 HOSPITAL COURSE: The patient is a 37-year-old female. The patient underwent a right thyroid lobect apolinar with biopsy showed papillary thyroid cancer. The patient was admitted and underwent completion total thyroidectomy. Postoperatively, the patient experienced significant pain and was admitted for further evaluation and management. The patient was given postoperative cefazolin. The patient was also given morphine p.r.n. for pain and Zofran p.r.n. for nausea. The patient was also given [place] p.r.n. for pain. The patient was able to tolerate food and swallowed without any problems and no c hanges in voice and patient was discharged home. CONDITION ON DISCHARGE: Hemodynamically stable. ACTIVITY: As the patient tolerates. DIET: Regular diet. MEDICATIONS ON DISCHARGE: The patient was given prescription for [place] p.r.n. for pain by Dr. Davis . FOLLOWUP: The patient is instructed to follow up with Dr. Davis in postoperative appointment in 1 to 2 weeks. Interdisciplinary plan of care was established for this patient. Plan of care was discussed with Dr Umer Huerta. Dictated By: NAE GUSTAFSON DIRECTOR OF SOCIAL SERVICES for VERNA HUERTA MD SR/NTS Conf#: [id number] DID#: [id number]
== END 2017-03-19 19:02 | disposition home or self-care (01) ==
LOC: SDS 11:24 → REC 15:51 → MS2 17:40
PROVIDERS: ADMIT Internal Medicine; ATTEND Surgery
DX: C73 Malignant neoplasm of thyroid gland (principal); E66.9 Obesity, unspecified; Z68.30 Body mass index [BMI] 30.0-30.9, adult
CPT/HCPCS: 60240; 80048; 80053; 85025; 88307; 96365; 96374; 96375; 96376; J0131; J0690; J1100; J1170; J2175; J2250; J2270; J2405; J2765; J3010; J7042; Z7500; Z7512; Z7610; G0378; J7120

== ENCOUNTER 2017-04-05 11:33 | Outpatient (CLI) | payer BC ==
[~2017-04-05] VITALS: Ht 154.9 cm; Wt 75.0 kg
[2017-04-05 11:58] VITALS: Ht 154.9 cm; Wt 75.0 kg
[2017-04-05 11:59] VITALS: BP 113/72; PULSE 63; RESP 16
--- NOTE | 2017-04-05 12:01 | PN ---
Date/Time of Note Date/Time of Note DATE: 04/05/17 TIME: 11:57 Outpatient Progress Note Chief Complaint Hypothyroidism/cancer of thyroid/obesity HPI Hypothyroidism/patient has hypothyroidism, patient is TSH elevated, patient was feeling weakness and tiredness, patient slightly better, thyroid cancer/patient has cancer of thyroid, patient had total thyroidectomy, no pain in her neck, surgical scar clean, no pain, Obesity/patient slightly obese, patient has hypothyroidism, Review of Systems Const: No Fever, no chills, no Wt. loss, slight fatigue, normal appetite, no diaphoresis. Eyes: No pain, no discharge, no redness, no visual change, no foreign body. ENT: No pain, surgical scar clean, no bleeding, no congestion, no sore throat, no dysphagia, no discharge or rhinitis. Lymph: No adenopathy, no tender nodes, no lymphedema. Resp: No SOB, no cough, no sputum, no wheezing, no chest pain. CV: No chest pain, no palpitaions, no DUNHAM, no PND, no edema. GI: Normal appetite, no pain, no nausea, no vomiting, no diarrhea, no blood, no constipation. : No frequency, no urgency, no dysuria, no hematuria, no flank pain, no discharge, no bleeding. Musc: No bone/joint pain, no back pain, no neck pain, no knee pain, no restricted ROM. Skin: No rash, no skin lesions, no erythema, no laceration, no bruising, no pruritus. Neuro: No ROLLE, no dizziness, no syncope, no seizure, no focal-weakness. Endo: No polyuria, no polydypsia, no dry-skin, no temp-intolerance. Psych: No hallucinations, no depression, no anxiety, no suicidal ideation. Ext: No edema, no pain, no ulcer, no weakness. Physical Exam General Appearance: A 37 year-old female who appears well-developed, well- nourished, in no acute distress. HEENT: Head normocephalic, atraumatic. Pupils equal, round, reactive to light and accommodate. Sclerae are no jaundice. Nasal turbinates pink without erythema or nasal discharge. Mucous membranes pink and moist without lesions. Oropharynx clear without any exudate or discharge. NECK: Supple. Trachea midline, surgical scar clean, no bleeding discharge or redness, no thyromegaly, No cervical lymphadenopathy, No mass, No carotid bruits , No JVD, Carotid pulses 2+ bilaterally. PULMONARY: Clear to auscultaion bilaterally, No retractions, Chest expansion symmetric bilaterally, no rales, no ronchi, no dulness on percussion. CARDIAC: Normal SI and S2, Regular rate and rythm, no murmur, gallop, or rub. GASTROINTESTINAL: Abdomen is soft, non-tender, Non Rigid, No distention, Positive bowel sounds x4 quadrants, Liver normal. SKIN: Warm, dry, no rash, no bruise, no echmosis. EXTREMITIES: Bilateral lower extremities normal, no edema, no phlabitus, pulse palpable, no contracture. MUSCULOSKELETAL: Spine Normal, Non-tender, Normal range of motion, No swelling, no deformity, no clubbing, or cyanosis, the patient has no edema to bilateral lower extremities, dorsalis pedis pulses palpable bilaterally. NEUROLOGIC: The patient is awake, alert, oriented, responding to yes/no questions appropriately, moving all extremities, cranial nerve intact, normal strenght, normal power, normal coordination, normal gait. Allergies Coded Allergies: No Known Allergies (Unverified Allergy, Unknown, 01/25/17) PMH No change Social Hx No change Family Hx No change Assessment/Plan Impression Hypothyroidism/cancer of thyroid/obesity Plan Patient education done about thyroid and cancer, patient TSH was 45.65, T4 was 2.5 low, and T3 was 61 low, Patient was started few days ago on Synthroid 50 mcg daily for 2 days and then 100 mcg daily, Patient will need a TSH in few weeks, and adjust the dose of thyroid accordingly , Patient encouraged to follow with the primary care physician, Medications Home Meds No Active Prescriptions or Reported Meds KULWANT KAPOOR MD Apr 05, 2017 12:01
== END 2017-04-05 17:00 | disposition home or self-care (01) ==
LOC: DCC 11:33
PROVIDERS: ATTEND Internal Medicine
DX: E03.9 Hypothyroidism, unspecified (principal); E66.9 Obesity, unspecified; Z85.850 Personal history of malignant neoplasm of thyroid